=== PATIENT | female | born 1980 | race Caucasian/White ===

== ENCOUNTER 2023-04-27 23:10 | Emergency (ER) | payer MEDICAID ==
[~2023-04-27] VITALS: Ht 157.5 cm; Wt 65.8 kg
[2023-04-27 23:14] VITALS: BP_SYST 119; PULSE 84; RESP 16; TEMP 98.4; O2SAT 98
[2023-04-28] MEDS ORDERED: KETOROLAC TROMETHAMINE 60 MG/2 ML VIAL IM ONE (00:30)
[2023-04-28] MEDS ORDERED: MORPHINE 4 MG INJ. 4 MG/ML VIAL IM ONE (00:30)
[2023-04-28 01:15] VITALS: BP_SYST 125; PULSE 80; RESP 15; TEMP 98; O2SAT 98
[2023-04-28] MEDS ORDERED: ONDANSETRON 4 MG ODT TAB PO ONE (01:30)
[2023-04-28] MEDS ORDERED: NAPR-690 PO (02:20)
== END 2023-04-28 02:20 | disposition home or self-care (01) ==
LOC: SED 23:10
DX: S33.5XXA Sprain of ligaments of lumbar spine, initial encounter (principal); Z79.899 Other long term (current) drug therapy; X58.XXXA Exposure to other specified factors, initial encounter; Y93.89 Activity, other specified; Y92.89 Other specified places as the place of occurrence of the external cause; Y99.8 Other external cause status
CPT/HCPCS: 99284; 96372; Q0162; J1885; J2270